=== PATIENT | male | born 1985 | race Caucasian/White ===

== ENCOUNTER 2022-10-10 14:16 | Emergency (ER) | payer MEDICAID, SELFPAY ==
[2022-10-10 14:19] VITALS: BP 145/95; PULSE 89; RESP 20; TEMP 36.3; O2SAT 100; BMI 27.7
--- NOTE | 2022-10-10 16:04 | CRLHL7_ITS ---
For Patients: As a result of the Cures Act, medical imaging exams and procedure reports are released immediately into your electronic medical record. You may view this report before your referring provider. If you have questions, please contact your health care provider. INDICATION: Injury. TECHNIQUE: Chest 5 views with bilateral ribs. COMPARISON: None. FINDINGS: Lungs: Normal lung volume. No consolidation. The tracheobronchial tree and hilar structures are unremarkable. Pleura: No pleural effusion or pneumothorax. Heart and Mediastinum: Normal heart size. The great vessels of the thorax are unremarkable. Bones: Nondisplaced acute right lateral 8th rib fracture. IMPRESSION: Nondisplaced acute right lateral 8th rib fracture. Dictated by Jovon Castañeda MD @ 10/10/2022 5:25:37 PM (Electronically Signed)
--- NOTE | 2022-10-10 16:08 | ED_ITS ---
HPI - General Adult General Chief complaint: Back Injury/Pain Stated complaint: Fell, back injury Time Seen by Provider: 10/10/22 15:59 History of Present Illness HPI narrative: This 36-year-old male comes in with right posterior rib pain. He states that he fell and hit his right posterior ribs on the edge of a step 2 days ago. His pain is worsened since then. He has had difficulty sleeping at night. He does not report any shortness of breath. Related Data Previous Rx's Medication Instructions Recorded cyclobenzaprine 10 mg tablet 10 mg PO TID #15 tabs 10/10/22 hydrocodone 5 mg-acetaminophen 325 1 tab PO Q4-6H PRN pain #20 tabs 10/10/22 mg tablet ketorolac 10 mg tablet 10 mg PO Q8H 7 days #21 tabs 10/10/22 Allergies Allergy/AdvReac Type Severity Reaction Status Date / Time amoxicillin Allergy Vomiting Verified 10/10/22 14:22 loratadine [From Claritin] Allergy Hives Verified 10/10/22 14:22 Review of Systems Status of ROS: Reports: 10 or more systems reviewed and unremarkable except as noted in History and below Narrative: Constitutional: No fevers, no weight gain or loss. Eyes: No discharge. No vision changes. HENT: No congestion, no sore throat, no ear pain. Cardiovascular: No chest pain, no palpitations. Respiratory: No shortness of breath, no wheezes, no cough. Chest: Right posterior rib pain worse with movement and deep breathing. Gastrointestinal: No abdominal pain, no vomiting, no diarrhea. Genitourinary: No dysuria, no hematuria. Musculoskeletal: Normal range of motion. Skin: No rashes, no pruritis. Neurological: No dizziness, weakness, sensory change, speech change. Endo/Heme/Allergies: No bruising or bleeding. No polydipsia. Pysch: no suicidality, no anxiety, no insomnia. All other systems reviewed and are negative. PFSH PFSH Social History Smoking Status: Current every day smoker What tobacco products do you use: cigarettes Smoking packs per day: 0.5 Smoking cigarettes per day: 10.0 Do you use any of these nicotine containing products: None Second hand tobacco smoke exposure: No How often do you have a drink containing alcohol: never AUDIT-C Alcohol total score: 0 Non-prescribed substance use: denies use Exam Narrative: Exam Narrative: Constitutional: Well-developed, well-nourished, no acute distress. HEENT: Normocephalic, atraumatic. Neck: Normal range of motion. Nontender. Supple. Heart: Regular. No murmurs. Normal rate. Intact distal pulses. Lungs: Clear to auscultation. No chest discomfort. No wheezes, rhonchi, or rales. Abdomen: Normal bowel sounds. Nontender. No rebound tenderness. Genitalia: Deferred. Back: No midline tenderness. Tenderness in the right lower posterior ribs. No external sign of bruising or skin injury. Extremities: Normal range of motion. No injury. Skin: Intact. No rash. Warm. No erythema or pallor. Neurologic: No altered sensation. No weakness. Alert and oriented. Psychiatric: No suicidality. No anxiety or depression. No insomnia. Nursing notes and vitals signs are reviewed. Const: Vital Signs, click to edit/add: Vital Signs - 24 hr 10/10/22 14:19 10/10/22 17:14 Temperature 97.3 F L Pulse Rate [Pulse Oximeter] 89 75 Respiratory Rate 20 12 Blood Pressure [Ri t Upper Arm] 145/95 H 132/92 H Pulse Oximetry 100 99 Oxygen Delivery Me thod Room Air Room Air Course Vital Signs Vital signs: Initial Vital Signs Temperature 97.3 F L 10/10/22 14:19 Temperature Source Temporal Artery Scan 10/10/22 14:19 Pulse Rate 89 10/10/22 14:19 Respiratory Rate 20 10/10/22 14:19 Blood Pressure 145/95 H 10/10/22 14:19 Blood Pressure Mean 111 H 10/10/22 14:19 Blood Pressure Position Sitting 10/10/22 14:19 Pulse Oximetry 100 10/10/22 14:19 Oxygen Delivery Method Room Air 10/10/22 14:19 Vital Signs Temperature 97.3 F L 10/10/22 14:19 Pulse Rate 89 10/10/22 14:19 Respiratory Rate 20 10/10/22 14:19 Blood Pressure 145/95 H 10/10/22 14:19 Pulse Oximetry 100 10/10/22 14:19 Oxygen Delivery Method Room Air 10/10/22 14:19 Temperature 97.3 F L 10/10/22 14:19 Pulse Rate 75 10/10/22 17:14 Respiratory Rate 12 10/10/22 17:14 Blood Pressure 132/92 H 10/10/22 17:14 Pulse Oximetry 99 10/10/22 17:14 Oxygen Delivery Method Room Air 10/10/22 17:14 Medical Decision Making MDM Narrative Medical decision making narrative: This patient comes in with a rib injury as described above. X-ray of the chest and ribs show no sign of pneumothorax but there is an nondisplaced fracture of the 8th rib on the right side. The patient did receive a rib belt which is providing some degree of comfort. I also prescribed Toradol, Flexeril, and some tablets of [place] for additional pain relief. He understands that this will not rid him of the pain but can help him at least sleep a bit at night. This kind of injury typically takes 4-6 weeks to resolve. Imaging Data Chest x-ray: Radiologist's impression: Nondisplaced acute right lateral 8th rib fracture. Discharge Plan Discharge Clinical Impression: Fracture of rib Patient Disposition: Home, Self-Care Condition: Unchanged Additional Instructions: Wear rib belt as needed. Take medication as needed and directed. Activity as tolerated. Follow up with MD return if worsening. Prescriptions: New cyclobenzaprine 10 mg tablet 10 mg PO TID Qty: 15 0RF hydrocodone-acetaminophen 5-325 mg tablet 1 tab PO Q4-6H PRN (Reason: pain) Qty: 20 0RF ketorolac 10 mg tablet 10 mg PO Q8H 7 Days Qty: 21 0RF Follow Up/Referrals: Provider,Not a Local [Primary Care Provider] - Stand Alone Forms: [facility] [employer] [facility] [address] Info Instructions
[2022-10-10 17:14] VITALS: BP 132/92; PULSE 75; RESP 12; O2SAT 99
[2022-10-10 18:00] VITALS: BP 134/103; PULSE 78; RESP 18; O2SAT 99
== END 2022-10-10 18:10 | disposition home or self-care (01) ==
PROVIDERS: Emergency Provider Emergency Medicine Emergency Medical Services
DX: S22.31XA Fracture of one rib, right side, initial encounter for closed fracture (principal); W01.10XA Fall on same level from slipping, tripping and stumbling with subsequent striking against unspecified object, initial encounter
CPT/HCPCS: 71101; 99283; 99284